=== PATIENT | female | born 1955 | race Caucasian/White ===

== ENCOUNTER → 2017-03-09 | Outpatient (CLI) | payer OTHER ==
--- NOTE | 2017-03-10 13:16 | HP ---
CHIEF COMPLAINT: The patient is here for her routine gynecologic exam and mammogram. HPI: This is a 62-year-old G0 with an LMP of 2003. The patient is without gynecologic complaints and denies any postmenopausal bleeding. She continues to decline any treatment for osteoporosis. PAST MEDICAL HISTORY: Type 2 diabetes and osteoporosis. MEDICATIONS: Metformin 1000 mg b.i.d. and Byetta 10 mg b.i.d. ALLERGIES: No known drug allergies. 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 SOCIAL HISTORY: She denies tobacco, alcohol and drug use. She works at [employer] and is single. REVIEW OF SYSTEMS: Weight has been stable. She denies respiratory, cardiac or GI problems. PHYSICAL EXAM: Blood pressure 127/75, height 5'7", weight 130 pounds, temperature 98.0, pulse 79. This is a well-developed, well-nourished white female who is alert and oriented x3, in no acute distress. HEENT: Within normal limits. NECK: Supple without mass or thyromegaly. CHEST AND LUNGS: Clear to auscultation. HEART: Regular rate and rhythm. BREASTS: Without mass or discharge. AXILLARY: Negative for adenopathy. BACK: Negative for CVA tenderness. ABDOMEN: Soft, nontender without palpable masses. PELVIC EXAM: External genitalia reveals mild to moderate atrophy without lesions. Cervix and vagina reveal mild to moderate atrophy without lesions. Ther cervix appears somewhat stenotic and nulliparous. There is no evidence of prolapse. The uterus is mid position, nongravitized and nontender. There are no palpable adnexal masses or tenderness. RECTOVAGINAL: Negative for mass or tenderness and is negative for occult blood. EXTREMITIES: Nontender. IMPRESSION: 1. 62-year-old menopausal female with normal gynecologic exam. 2. History of osteoporosis and the patient declines any medical treatment for this. PLAN: 1. Pap smear was performed. 2. Self breast examination was discussed. 3. Mammogram will be done today. 4. Osteoporosis management was discussed. We have, again, discussed how she is at a significantly increased risk for fracturing a bone. We have discussed options including medications and she is declining any medical treatment for this. We have discussed the importance of adequate amounts of calcium, vitamin D and regular exercise. She will let me know if she changes her mind about medical treatment. 5 She will return in one year. ELÍAS
--- NOTE | 2017-03-11 07:44 | MM ---
Reason for exam: screening (asymptomatic). Last mammogram was performed 1 year ago. History: Patient is postmenopausal and is nulliparous. Benign US right guided VAD of the right breast, January 08, 2011. Cancelled Right US Needle Biopsy of the right breast, December 10, 2009. Benign excisional biopsy of the left breast, 1999. Physical Findings: A clinical breast exam by your physician is recommended on an annual basis and results should be correlated with mammographic findings. MG Screening Mammo w CAD Bilateral CC and MLO view(s) were taken. Prior study comparison: February 25, 2016, bilateral MG screening mammo w CAD. February 19, 2015, bilateral MG screening mammo w CAD. February 13, 2014, bilateral MG screening mammo w CAD. The breast tissue is heterogeneously dense. This may lower the sensitivity of mammography. Previous mammotome biopsy in the right breast. There is chronic nodularity in the left breast. No significant changes when compared with prior studies. ASSESSMENT: Negative, BI-RAD 1 RECOMMENDATION: Routine screening mammogram of both breasts in 1 year.
== END | disposition home or self-care (01) ==
LOC: WWCWWP 14:24
PROVIDERS: ATTEND Obstetrics & Gynecology
DX: Z12.31 Encounter for screening mammogram for malignant neoplasm of breast (principal)

== ENCOUNTER → 2018-03-22 | Outpatient (CLI) | payer OTHER ==
[2018-03-22 14:30] VITALS: BP 136/66; PULSE 75; TEMP 96.5; BMI 23.1
--- NOTE | 2018-03-22 15:14 | P.HPOB ---
History of Present Illness H&P Date: 03/22/18 Chief Complaint: The patient is here for her routine gynecologic exam and mammogram. This is a 63-year-old G0 with an LMP of 2003. The patient is without gynecologic complaints and denies any postmenopausal bleeding. She continues to decline any treatment for osteoporosis. Review of Systems The patient has gained 13 pounds over the last year. She denies respiratory, cardiac, or G.I. problems. Past Medical History Past Medical History: No Reported History, Diabetes Mellitus (Type II diabetes) Additional Past Medical History / Comment(s): Osteoporosis, declining treatment. 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 History of Any Multi-Drug Resistant Organisms: None Reported Past Surgical History: No Surgical Hx Reported, Breast Surgery (Left breast lump removed 1999, right breast cyst removed 2010) Additional Past Surgical History / Comment(s): Surgery for urethral diverticulum 2008. Colonoscopy 2012. Past Psychological History: No Psychological Hx Reported Smoking Status: Never smoker Past Alcohol Use History: None Reported Past Drug Use History: None Reported Additional History: She is single and works at [employer]. - Past Family History Mother Family Medical History: Cancer (Colon cancer), Diabetes Mellitus Father Family Medical History: Diabetes Mellitus Sister(s) Family Medical History: Diabetes Mellitus Medications and Allergies Home Medications Medication Instructions Recorded Confirmed Type Pioglitazone [Actos] mg PO DAILY 03/22/18 History metFORMIN HCL mg PO BID 03/22/18 History Allergies Allergy/AdvReac Type Severity Reaction Status Date / Time No Known Allergies Allergy Unverified 03/22/18 14:24 Exam Vital Signs Temp Pulse BP 03/22/18 14:26 96.5 F L 75 136/66 Intake and Output 03/22/18 03/22/18 03/22/18 06:59 14:59 22:59 Other: Weight 64.864 kg Height 5'6", BMI 23.1. This is a well-developed well-nourished white female who is alert and oriented times 3 in no acute distress. HEENT: Within normal limits. NECK: Supple without mass or thyromegaly. CHEST AND LUNGS: Clear to auscultation. HEART: Regular rate and rhythm. BREASTS: Are without mass or discharge. AXILLARY EXAM: Negative for adenopathy. BACK: Negative for CVA tenderness. ABDOMEN: Soft, nontender, without palpable masses. PELVIC EXAM: Normal external genitalia with mild to moderate atrophy. Cervix and vagina appear normal with mild to moderate atrophy. There is no unusual discharge. There is no evidence of prolapse. The uterus is midposition, nongravid size and nontender. There are no palpable adnexal masses or tenderness. RECTAL EXAM: rectovaginal exam is negative for mass or tenderness and is negative for occult blood. EXTREMITIES: Nontender. IMPRESSION: 1. 63-year-old menopausal female with normal gynecologic exam. 2. History of osteoporosis. The patient is declining any medical treatment for this. She is also declining any further bone density testing. PLAN: 1. Pap smear was deferred since she had a normal one last year. 2. Self breast awareness was discussed. 3. Screening mammogram will be done today. 4. Osteoporosis management was again discussed. She will continue to try to get adequate amounts of calcium, vitamin D and regular exercise. I have again recommended medication because of her high risk for fracture. She will let me know if she changes her mind about further testing or treatment. 5. She states she will be due for a colonoscopy and is scheduled to do this in 2019. 6. She will return in one year.
--- NOTE | 2018-03-23 14:49 | MM ---
Reason for exam: screening (asymptomatic). Last mammogram was performed 1 year ago. History: Patient is postmenopausal and is nulliparous. Benign US right guided VAD of the right breast, January 08, 2011. Cancelled Right US Needle Biopsy of the right breast, December 10, 2009. Benign excisional biopsy of the left breast, 1999. Physical Findings: A clinical breast exam by your physician is recommended on an annual basis and results should be correlated with mammographic findings. MG Screening Mammo w CAD Bilateral CC and MLO view(s) were taken. Technologist: RT Joe (R)(M) Prior study comparison: March 09, 2017, bilateral MG screening mammo w CAD. February 25, 2016, bilateral MG screening mammo w CAD. The breast tissue is heterogeneously dense. This may lower the sensitivity of mammography. No significant changes when compared with prior studies. ASSESSMENT: Benign, BI-RAD 2 RECOMMENDATION: Routine screening mammogram of both breasts in 1 year.
== END | disposition home or self-care (01) ==
LOC: WWCWWP 14:02
PROVIDERS: ATTEND Obstetrics & Gynecology
DX: Z12.31 Encounter for screening mammogram for malignant neoplasm of breast (principal)
CPT/HCPCS: 77067

== ENCOUNTER → 2019-05-02 | Outpatient (CLI) | payer OTHER ==
[2019-05-02 15:33] VITALS: BP 146/77; PULSE 81; RESP 16; TEMP 98.1; BMI 25.9
--- NOTE | 2019-05-02 16:09 | P.HPOB ---
History of Present Illness H&P Date: 05/02/19 Chief Complaint: The patient is here for her routine gynecologic exam and ma mmogram. This is a 64-year-old G0 with an LMP of 2003. The patient is without gynecologic complaints. The patient continues to decline any treatment for osteoporosis. Review of Systems She has gained about 17 pounds in the last year. She denies respiratory, cardiac and G.I. problems. She denies maltreatment or problems with falling. : she denies any significant problems with urinary leakage. Past Medical History Past Medical History: No Reported History, Diabetes Mellitus Additional Past Medical History / Comment(s): Type 2 diabetes. Osteoporosis, declining treatment. 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 History of Any Multi-Drug Resistant Organisms: None Reported Past Surgical History: No Surgical Hx Reported, Breast Surgery Additional Past Surgical History / Comment(s): Surgery for urethral diverticulum 2008. Colonoscopy 2012. Past Psychological History: No Psychological Hx Reported Smoking Status: Never smoker Past Alcohol Use History: None Reported Past Drug Use History: None Reported Additional History: She is single and is not seeing anybody at this time. She is not sexually active. She works at [employer]. - Past Family History Mother Family Medical History: Cancer, Diabetes Mellitus Additional Family Medical History / Comment(s): Colon cancer. Father Family Medical History: Diabetes Mellitus Sister(s) Family Medical History: Diabetes Mellitus Medications and Allergies Home Medications Medication Instructions Recorded Confirmed Type Pioglitazone [Actos] 45 mg PO DAILY 03/22/18 05/02/19 History metFORMIN HCL 1,000 mg PO BID 03/22/18 05/02/19 History Exenatide Microspheres [Bydureon 2 mg SQ WEEKLY 05/02/19 05/02/19 History Pen] Allergies Allergy/AdvReac Type Severity Reaction Status Date / Time No Known Allergies Allergy Unverified 03/22/18 14:24 Exam Vital Signs Temp Pulse Resp BP Pulse Ox 05/02/19 15:27 98.1 F 81 16 146/77 98 Intake and Output 05/02/19 05/02/19 05/02/19 06:59 14:59 22:59 Other: Weight 73.028 kg Height 5 feet 6 inches, weight 161 pounds, BMI 26.0. This is a well-developed well-nourished white female who is alert and oriented times 3 in no acute distress. HEENT: Within normal limits. NECK: Supple without mass or thyromegaly. CHEST AND LUNGS: Clear to auscultation. HEART: Regular rate and rhythm. BREASTS: Are without mass or discharge. AXILLARY EXAM: Negative for adenopathy. BACK: Negative for CVA tenderness. ABDOMEN: Soft, nontender, without palpable masses. PELVIC EXAM: Normal external genitalia with mild to moderate atrophy. Cervix and vagina appear normal with mild to moderate atrophy. There is no unusual discharge. There is no evidence of prolapse. The uterus is mid- anterior position, nongravid size and nontender. There are no palpable adnexal masses or tenderness. RECTAL EXAM: Rectovaginal exam is negative for mass or tenderness and is negative for occult blood. EXTREMITIES: Nontender. IMPRESSION: 1. 64-year-old menopausal female with normal gynecologic exam. 2. History of osteoporosis. The patient is declining any medical treatment for this. PLAN: 1. Pap smears have been discontinued. She is 64 years of age with no history of cervical problems and we have documented adequate screening. 2. Self breast awareness was discussed with the patient. 3. Screening mammogram will be done today. 4. Osteoporosis management was discussed. I have stressed the importance of adequate calcium, vitamin D and regular exercise. Recommended amounts of calcium and vitamin D were also discussed. She continues to decline medication for osteoporosis. She understands she is at high risk for fracture of bone. We have discussed ways of avoiding falling. I have asked her to call me if she changes her mind about medication or testing. 5. She does not get flu shots in the fall. I have asked her to reconsider this decision. 6. The patient was advised to return in 1-2 years for her well woman examination.
--- NOTE | 2019-05-03 10:46 | MM ---
Reason for exam: screening (asymptomatic). Last mammogram was performed 1 year and 1 month ago. History: Patient is postmenopausal and is nulliparous. Benign US right guided VAD of the right breast, January 08, 2011. Cancelled Right US Needle Biopsy of the right breast, December 10, 2009. Benign excisional biopsy of the left breast, 1999. Physical Findings: A clinical breast exam by your physician is recommended on an annual basis and results should be correlated with mammographic findings. MG Screening Mammo w CAD Bilateral CC and MLO view(s) were taken. Prior study comparison: March 22, 2018, bilateral MG screening mammo w CAD. March 09, 2017, bilateral MG screening mammo w CAD. The breast tissue is heterogeneously dense. This may lower the sensitivity of mammography. Stable benign calcifications. Focal asymmetry central inner left breast. This finding is changed when compared with previous exams. ASSESSMENT: Incomplete: need additional imaging evaluation, BI-RAD 0 RECOMMENDATION: Special view mammogram of the left breast. If lesion persists on supplemental views, image directed ultrasound is recommended. [facility] will attempt to contact patient to return for supplemental views and ultrasound if indicated.
== END ==
LOC: WWCWWP 15:21
PROVIDERS: ATTEND Obstetrics & Gynecology
DX: Z12.31 Encounter for screening mammogram for malignant neoplasm of breast (principal)
CPT/HCPCS: 77067

== ENCOUNTER → 2019-05-15 | Outpatient (CLI) | payer OTHER ==
--- NOTE | 2019-05-16 08:12 | MM ---
Reason for exam: additional evaluation requested from abnormal screening. Last mammogram was performed less than 1 month ago. History: Patient is postmenopausal and is nulliparous. Benign US right guided VAD of the right breast, January 08, 2011. Cancelled Right US Needle Biopsy of the right breast, December 10, 2009. Benign excisional biopsy of the left breast, 1999. Physical Findings: Nurse did not find any significant physical abnormalities on exam. MG Work Up Mamm w CAD LT Spot compression CC, spot compression MLO, and ML view(s) were taken of the left breast. Prior study comparison: May 02, 2019, bilateral MG screening mammo w CAD. March 22, 2018, bilateral MG screening mammo w CAD. The breast tissue is heterogeneously dense. This may lower the sensitivity of mammography. Benign appearing calcifications in the left breast. The previously seen abnormality resolves on additional views and appears as fibroglandular tissue compatible with summation. No suspicious abnormality. These results were verbally communicated with the patient and result sheet given to the patient on 05/15/19. ASSESSMENT: Benign, BI-RAD 2 RECOMMENDATION: Return to routine screening mammogram schedule for both breasts.
== END | disposition home or self-care (01) ==
LOC: RADMAMWWP 14:50
PROVIDERS: ATTEND Obstetrics & Gynecology
DX: R92.8 Other abnormal and inconclusive findings on diagnostic imaging of breast (principal)
CPT/HCPCS: 77065

== ENCOUNTER → 2020-07-09 | Outpatient (CLI) | payer OTHER ==
[2020-07-09 15:33] VITALS: BP 130/77; PULSE 75; RESP 18; TEMP 97.8
--- NOTE | 2020-07-09 16:00 | P.HPOB ---
History of Present Illness H&P Date: 07/09/20 Chief Complaint: The patient is here for her routine gynecologic exam and ma mmogram. This is a 65-year-old G0 with an LMP of 2003. The patient is without gynecologic complaints and denies any postmenopausal bleeding. Review of Systems Weight has been stable. She denies respiratory, cardiac and G.I. problems. She denies maltreatment or problems with falling. : she denies any significant problems with urinary leakage. Past Medical History Past Medical History: No Reported History, Diabetes Mellitus Additional Past Medical History / Comment(s): Type 2 diabetes. Osteoporosis, declining treatment. 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 History of Any Multi-Drug Resistant Organisms: None Reported Past Surgical History: No Surgical Hx Reported, Breast Surgery Additional Past Surgical History / Comment(s): Surgery for urethral diverticulum 2008. Colonoscopy 2012. Past Psychological History: No Psychological Hx Reported Smoking Status: Never smoker Past Alcohol Use History: None Reported Past Drug Use History: None Reported Additional History: She is single. She is not sexually active. She works at [employer]. - Past Family History Mother Family Medical History: Cancer, Diabetes Mellitus Additional Family Medical History / Comment(s): Colon cancer. Father Family Medical History: Diabetes Mellitus Sister(s) Family Medical History: Diabetes Mellitus Medications and Allergies Home Medications Medication Instructions Recorded Confirmed Type Pioglitazone [Actos] 45 mg PO DAILY 03/22/18 07/09/20 History metFORMIN HCL 1,000 mg PO BID 03/22/18 07/09/20 History Dulaglutide [Trulicity] 0.75 mg SQ WEEKLY 07/09/20 07/09/20 History Allergies Allergy/AdvReac Type Severity Reaction Status Date / Time No Known Allergies Allergy Unverified 07/09/20 15:27 Exam Vital Signs Temp Pulse Resp BP Pulse Ox 07/09/20 15:28 97.8 F 75 18 130/77 98 Intake and Output 07/09/20 07/09/20 07/09/20 06:59 14:59 22:59 Other: Weight 72.575 kg Height 5 feet 6 inches, weight 160 pounds, BMI 25.8. This is a well-developed well-nourished white female who is alert and oriented times 3 in no acute distress. HEENT: Within normal limits. NECK: Supple without mass or thyromegaly. CHEST AND LUNGS: Clear to auscultation. HEART: Regular rate and rhythm. BREASTS: Are without mass or discharge. AXILLARY EXAM: Negative for adenopathy. BACK: Negative for CVA tenderness. ABDOMEN: Soft, nontender, without palpable masses. PELVIC EXAM: Normal external genitalia with mild to moderate atrophy. Cervix and vagina appear normal with mild to moderate atrophy. There is no unusual discharge. There is no evidence of prolapse. The uterus is midposition, nongravid size and nontender. There are no palpable adnexal masses or tenderness. RECTAL EXAM: Rectovaginal exam is negative for mass or tenderness and is negative for occult blood. EXTREMITIES: Nontender. IMPRESSION: 1. 65-year-old menopausal female with normal gynecologic exam. 2. History of osteoporosis declining medical treatment for this. PLAN: 1. Pap smears have been discontinued. 2. Self breast awareness was discussed with the patient. 3. Screening mammogram will be done today. 4. Osteoporosis management was discussed. I have stressed the importance of adequate calcium, vitamin D and regular exercise. Recommended amounts of calcium and vitamin D were also discussed. She again is declining testing or treatment for osteoporosis. She understands she is at greater risk for bone fracture. I have recommended that she take precautions to avoid falling. I have instructed her to call if she changes her mind about treatment for osteoporosis. 5. She believes she is due for a colonoscopy. She will see her PCP to help her to arrange for this. 6. She states she does not get flu shots in the fall. I have recommended that she reconsider this and that she consider the Covid vaccination when available. 7. The patient was advised to return in 1-2 years for her well woman examination.
--- NOTE | 2020-07-10 14:00 | MM ---
Reason for exam: screening (asymptomatic). Last mammogram was performed 1 year and 2 months ago. History: Patient is postmenopausal and is nulliparous. Benign US right guided VAD of the right breast, January 08, 2011. Cancelled Right US Needle Biopsy of the right breast, December 10, 2009. Benign excisional biopsy of the left breast, 1999. Physical Findings: A clinical breast exam by your physician is recommended on an annual basis and results should be correlated with mammographic findings. MG Screening Mammo w CAD Bilateral CC and MLO view(s) were taken. Prior study comparison: May 15, 2019, left breast MG work up mamm w CAD LT. May 02, 2019, bilateral MG screening mammo w CAD. Previous mammotome biopsy in the right breast. No significant changes when compared with prior studies. ASSESSMENT: Benign, BI-RAD 2 RECOMMENDATION: Routine screening mammogram of both breasts in 1 year.
== END | disposition home or self-care (01) ==
LOC: WWCWWP 15:12
PROVIDERS: ATTEND Obstetrics & Gynecology
DX: Z12.31 Encounter for screening mammogram for malignant neoplasm of breast (principal)
CPT/HCPCS: 77067

== ENCOUNTER → 2021-07-23 | Outpatient (CLI) | payer OTHER ==
[2021-07-23 10:46] VITALS: BP 114/76; PULSE 81; RESP 18; TEMP 98.1
--- NOTE | 2021-07-23 11:28 | P.HPOB ---
History of Present Illness H&P Date: 07/23/21 Chief Complaint: The patient is here for her routine gynecologic exam and ma mmogram. This is a 66-year-old G0 with an LMP of 2003. The patient is without gynecologic complaints. Review of Systems The patient's weight has been stable over the last year. She denies respiratory, cardiac, or G.I. problems. Past Medical History Past Medical History: No Reported History, Diabetes Mellitus Additional Past Medical History / Comment(s): Type 2 diabetes. Osteoporosis, declining treatment. 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 History of Any Multi-Drug Resistant Organisms: None Reported Past Surgical History: No Surgical Hx Reported, Breast Surgery Additional Past Surgical History / Comment(s): Surgery for urethral diverticulum 2008. Colonoscopy 2020. Past Psychological History: No Psychological Hx Reported Smoking Status: Never smoker Past Alcohol Use History: None Reported Past Drug Use History: None Reported Additional History: She is single and is not sexually active. - Past Family History Mother Family Medical History: Cancer, Diabetes Mellitus Additional Family Medical History / Comment(s): Colon cancer. Father Family Medical History: Diabetes Mellitus Sister(s) Family Medical History: Diabetes Mellitus Medications and Allergies Home Medications Medication Instructions Recorded Confirmed Type Pioglitazone [Actos] 45 mg PO DAILY 03/22/18 07/23/21 History metFORMIN HCL [Glucophage] 1,000 mg PO BID 03/22/18 07/23/21 History Dulaglutide [Trulicity] 0.75 mg SQ WEEKLY 07/09/20 07/23/21 History Biotin 5 mg PO DAILY 07/23/21 07/23/21 History Calcium Carbonate [Calcium] 600 mg PO DAILY 07/23/21 07/23/21 History Cholecalciferol [Vitamin D3 (25 25 mcg PO DAILY 07/23/21 07/23/21 History Mcg = 1000 Iu)] Multivitamin [Multivitamins Adult 1 each PO DAILY 07/23/21 07/23/21 History Gummies] Zinc 50 mg PO DAILY 07/23/21 07/23/21 History Allergies Allergy/AdvReac Type Severity Reaction Status Date / Time No Known Allergies Allergy Unverified 07/23/21 10:41 Exam Vital Signs Temp Pulse Resp BP Pulse Ox 07/23/21 10:41 98.1 F 81 18 114/76 98 Intake and Output 07/22/21 07/23/21 07/23/21 22:59 06:59 14:59 Other: Weight 73.482 kg Height 5 feet 6 inches, weight 162 pounds, BMI 26.1. This is a well-developed well-nourished white female who is alert and oriented times 3 in no acute distress. HEENT: Within normal limits. NECK: Supple without mass or thyromegaly. CHEST AND LUNGS: Clear to auscultation. HEART: Regular rate and rhythm. BREASTS: Are without mass or discharge. AXILLARY EXAM: Negative for adenopathy. BACK: Negative for CVA tenderness. ABDOMEN: Soft, nontender, without palpable masses. PELVIC EXAM: Normal external genitalia with mild to moderate atrophy. Cervix and vagina appear normal with mild to moderate atrophy. There is no unusual discharge. There is no evidence of prolapse. The uterus is midposition, nongravid size and nontender. There are no palpable adnexal masses or tenderness. RECTAL EXAM: Rectovaginal exam is negative for mass or tenderness and is negative for occult blood. EXTREMITIES: Nontender. IMPRESSION: 1. 66-year-old menopausal female with normal gynecologic exam. 2. History of osteoporosis in the patient continues to refuse treatment with prescription medications. PLAN: 1. Pap smears have been discontinued. 2. Self breast awareness was discussed with the patient. We have also discussed symptoms associated with inflammatory breast cancer. 3. Screening mammogram will be done today. 4. Osteoporosis management was discussed. I have stressed the importance of adequate calcium, vitamin D and regular exercise. The patient is refusing additional treatment or testing. She was instructed to call if she changes her mind about this. 5. The patient has not received Covid vaccination. We have discussed the risks of not having any Covid vaccination including severe illness or . She will consider this. She also states she does not get flu shots. 6. She was advised to return in one year for her annual well woman exam.
== END ==
LOC: WWCWWP 10:17
PROVIDERS: ATTEND Obstetrics & Gynecology
DX: Z12.31 Encounter for screening mammogram for malignant neoplasm of breast (principal); E11.9 Type 2 diabetes mellitus without complications; Z79.84 Long term (current) use of oral hypoglycemic drugs; Z87.310 Personal history of (healed) osteoporosis fracture
CPT/HCPCS: 77067

== ENCOUNTER 2022-02-11 10:39 | Emergency (ER) | payer OTHER ==
[2022-02-11] MEDS ORDERED: KETOROLAC 15 MG/ML 1 ML VIAL IM STA (10:56)
[2022-02-11] MEDS ORDERED: HYDROcodone/APAP 5-325MG 1 EACH TAB PO STA (10:56)
--- NOTE | 2022-02-11 11:02 | ED ---
Fall HPI - General Chief Complaint: Fall Stated Complaint: fall, wrist injury Time Seen by Provider: 02/11/22 10:43 Source: patient, family, RN notes reviewed Mode of arrival: ambulatory - History of Present Illness Initial Comments: This is a 67-year-old female who presents to the emergency department with a fall injury. This morning, the patient was walking out of her house, when she tripped over her cat and landed on the cement. She landed on the left side of her body, causing pain to the left shoulder, left arm, and left wrist. She has been unable to move the arm since. Denies hitting her head or sustaining any additional injuries. Denies any fevers, chills, sore throat, cough, dyspnea, chest pain, palpitations, abdominal pain, nausea, vomiting, diarrhea, back pain, or headaches. MD Complaint: fall Fall From: standing Fall Witnessed: no Place Fall Occurred: home Loss of Consciousness: none Prolonged Down Time?: no Symptoms Prior to Fall: none Location - Extremities: Left: Shoulder, Arm, Elbow, Forearm, Hand Context: tripped/slipped - Related Data Home Medications Medication Instructions Recorded Confirmed Pioglitazone [Actos] 45 mg PO DAILY 03/22/18 07/23/21 metFORMIN HCL [Glucophage] 1,000 mg PO BID 03/22/18 07/23/21 Dulaglutide [Trulicity] 0.75 mg SQ WEEKLY 07/09/20 07/23/21 Biotin 5 mg PO DAILY 07/23/21 07/23/21 Calcium Carbonate [Calcium] 600 mg PO DAILY 07/23/21 07/23/21 Cholecalciferol [Vitamin D3 (25 25 mcg PO DAILY 07/23/21 07/23/21 Mcg = 1000 Iu)] Multivitamin [Multivitamins Adult 1 each PO DAILY 07/23/21 07/23/21 Gummies] Zinc 50 mg PO DAILY 07/23/21 07/23/21 Previous Rx's Medication Instructions Recorded HYDROcodone/APAP 5-325MG [[place] 1 tab PO Q6HR PRN 3 Days #12 tab 02/11/22 5-325] Ketorolac [Toradol] 10 mg PO Q6HR #12 tab 02/11/22 Allergies Allergy/AdvReac Type Severity Reaction Status Date / Time No Known Allergies Allergy Verified 02/11/22 10:42 Review of Systems ROS Statement: Those systems with pertinent positive or pertinent negative responses have been documented in the HPI. ROS Other: All systems not noted in ROS Statement are negative. Past Medical History Past Medical History: No Reported History, Diabetes Mellitus Additional Past Medical History / Comment(s): Type 2 diabetes. Osteoporosis, declining treatment. 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 History of Any Multi-Drug Resistant Organisms: None Reported Past Surgical History: No Surgical Hx Reported, Breast Surgery Additional Past Surgical History / Comment(s): Surgery for urethral diverticulum 2008. Colonoscopy 2020. Past Psychological History: No Psychological Hx Reported Smoking Status: Never smoker Past Alcohol Use History: None Reported Past Drug Use History: None Reported - Past Family History Mother Family Medical History: Cancer, Diabetes Mellitus Additional Family Medical History / Comment(s): Colon cancer. Father Family Medical History: Diabetes Mellitus Sister(s) Family Medical History: Diabetes Mellitus General Exam Limitations: no limitations General appearance: alert, in distress Head exam: Present: atraumatic, normocephalic, normal inspection Respiratory exam: Present: normal lung sounds bilaterally. Absent: respiratory distress, wheezes, rales, rhonchi, stridor Cardiovascular Exam: Present: regular rate, normal rhythm, normal heart sounds. Absent: systolic murmur, diastolic murmur, rubs, gallop, clicks Extremities exam: Present: other (Patient's left arm is held in flexion. Prominent swelling over the left olecranon bursa. Severely limited range of motion secondary to pain.) Neurological exam: Present: alert, oriented X3, CN II-XII intact Psychiatric exam: Present: normal affect, normal mood Skin exam: Present: warm, dry, intact, normal color. Absent: rash Course Vital Signs 02/11/22 02/11/22 10:40 13:20 Temperature 96.9 F L 97.8 F Pulse Rate 83 82 Respiratory 18 22 Rate Blood Pressure 150/71 156/72 O2 Sat by Pulse 97 97 Oximetry Procedures - Orthopedic Splinting/Casting Injury #1 Side: left Upper Extremity Injury Location: elbow Upper Extremity Immobilizer: sling/shoulder immobilizer, posterior splint Medical Decision Making - Medical Decision Making This is a 67-year-old female who presents to the emergency department for left arm pain after a fall. X-rays reveal a comminuted fracture involving the proximal humeral ulna with displacement of at least 6 mm and intra-articular extension. Deformity of the radial head is also present, suspicious for add itional fractures. I spoke with orthopedics, and Dr. Whyte reviewed the patient's imaging. He advised putting her in a splint and having him see her in the office tomorrow or [place]. She was placed in a posterior elbow splint and and then placed in a sling. She was given prescription for Toradol and [place]. Instructed her to take the [place] sparingly when the pain is the most severe, and to otherwise take the Toradol and Tylenol. Signs and symptoms of compartment syndrome reviewed. Return precautions reviewed in depth, the patient is instructed to return to the emergency department with any new, worsening, or concerning symptoms. Patient verbalized understanding. This case was discussed in detail with the attending ED physician. Presentation, findings, and treatment plan discussed in detail as well. - Radiology Data Radiology results: report reviewed, image reviewed Disposition Clinical Impression: Left ulnar fracture, Left radial head fracture Disposition: HOME SELF-CARE Instructions (If sedation given, give patient instructions): Arm Fracture in Adults (ED), How to Use a Sling (ED), Splint Care (ED), Fall Prevention (ED), Proximal Humerus Fracture (ED) Additional Instructions: Return to the emergency department with any new, worsening, or concerning symptoms. Contact orthopedics as listed on your discharge forms for a follow-up appointment in the next 1-2 days. Avoid getting the splint wet. Take the [place] sparingly when you're pain is the most severe, and avoid driving or operating machinery when taking this, as it can be sedating. Do not take ibuprofen or other anti-inflammatories when taking the Toradol. You may take anti-inflammatories after you finish the Toradol. Prescriptions: HYDROcodone/APAP 5-325MG [[place] 5-325] 1 tab PO Q6HR PRN 3 Days #12 tab PRN Reason: Pain Ketorolac [Toradol] 10 mg PO Q6HR #12 tab Is patient prescribed a controlled substance at d/c from ED?: Yes When asked, does pt state using other controlled substances?: No If prescribed controlled substance>3 days was MAPS reviewed?: Prescribed <3 Days Referrals: Lázaro Castano Jr, DO [Primary Care Provider] - 1-2 days Sorin Whyte MD [STAFF PHYSICIAN] - 1-2 days
--- NOTE | 2022-02-11 11:41 | XR ---
EXAMINATION TYPE: XR wrist complete LT DATE OF EXAM: 02/11/2022 CLINICAL HISTORY: pain TECHNIQUE: Frontal, lateral and oblique images of the left wrist are obtained. COMPARISON: None. FINDINGS: There is no acute fracture/dislocation evident. The joint spaces appear within normal schmidt its. The overlying soft tissue appears unremarkable. IMPRESSION: There is no acute fracture or dislocation seen. ICD 10 NO FRACTURE, INITIAL EVALUATION
--- NOTE | 2022-02-11 11:44 | XR ---
EXAMINATION TYPE: XR forearm LT, XR elbow complete LT DATE OF EXAM: 02/11/2022 CLINICAL HISTORY: pain TECHNIQUE: Frontal, lateral and oblique images of the left elbow are obtained. 2 views of the left f orearm are submitted. COMPARISON: None. FINDINGS: There is comminuted fracture involving the proximal humeral ulna with displacement of at le ast 6 mm. There appears to be intra-articular extension. There is also deformity of the radial head a nd I suspect additional fractures. Soft tissue deformity seen. IMPRESSION: As above
--- NOTE | 2022-02-11 11:47 | XR ---
EXAMINATION TYPE: XR humerus LT DATE OF EXAM: 02/11/2022 COMPARISON: NONE HISTORY: Pain TECHNIQUE: 2 views submitted. FINDINGS: The osseous structures are intact and the joint spaces are preserved. Diffuse osteopenia. IMPRESSION: 1. No acute fracture or dislocation.
--- NOTE | 2022-02-11 11:48 | XR ---
EXAMINATION TYPE: XR shoulder complete LT DATE OF EXAM: 02/11/2022 COMPARISON: NONE HISTORY: Pain TECHNIQUE: Three views are submitted. FINDINGS: The osseous structures are intact. There is no acute fracture or dislocation. The AC joint arthropa thy and diffuse osteopenia. IMPRESSION: 1. No acute process.
[2022-02-11 13:25] VITALS: BP 156/72; PULSE 82; RESP 22; TEMP 97.8
== END 2022-02-11 13:20 | disposition home or self-care (01) ==
LOC: EC 10:39
DX: S52.122A Displaced fracture of head of left radius, initial encounter for closed fracture (principal); S52.202A Unspecified fracture of shaft of left ulna, initial encounter for closed fracture; E11.9 Type 2 diabetes mellitus without complications; W01.0XXA Fall on same level from slipping, tripping and stumbling without subsequent striking against object, initial encounter
CPT/HCPCS: 73030; 73060; 73080; 73090; 73110; 29125; 99284; 96372; J1885

== ENCOUNTER → 2022-08-11 | Outpatient (CLI) | payer OTHER ==
[2022-08-11 12:35] VITALS: BP 131/80; PULSE 90; RESP 16; TEMP 97.9
--- NOTE | 2022-08-11 13:18 | P.HPOB ---
History of Present Illness H&P Date: 08/11/22 Chief Complaint: The patient is here for her routine gynecologic exam and ma mmogram. This is a 67-year-old G0 with an LMP of 2003. The patient is without gynecologic complaints and denies any postmenopausal bleeding. She denies any unusual vaginal discharge, genital pruritus, or odor. Review of Systems The patient has lost 17 pounds over the last year. She states that now that she is living on her own, she is eating only 1 meal per day. Her mother this year. She denies respiratory, cardiac, or G.I. problems. Past Medical History Past Medical History: No Reported History, Diabetes Mellitus Additional Past Medical History / Comment(s): Type 2 diabetes. Osteoporosis, declining treatment. 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 History of Any Multi-Drug Resistant Organisms: None Reported Past Surgical History: No Surgical Hx Reported, Breast Surgery Additional Past Surgical History / Comment(s): Surgery for urethral diverticulum 2008. Colonoscopy 2020. Left arm surgery after a fall. Past Psychological History: No Psychological Hx Reported Smoking Status: Never smoker Past Alcohol Use History: None Reported Past Drug Use History: None Reported Additional History: She is single and is not sexually active. - Past Family History Mother Family Medical History: Cancer, Diabetes Mellitus Additional Family Medical History / Comment(s): Colon cancer. Father Family Medical History: Diabetes Mellitus Sister(s) Family Medical History: Diabetes Mellitus Medications and Allergies Home Medications Medication Instructions Recorded Confirmed Type Pioglitazone [Actos] 45 mg PO DAILY 03/22/18 08/11/22 History metFORMIN HCL [Glucophage] 1,000 mg PO BID 03/22/18 08/11/22 History Dulaglutide [Trulicity] 3 mg SQ WEEKLY 07/09/20 08/11/22 History Allergies Allergy/AdvReac Type Severity Reaction Status Date / Time No Known Allergies Allergy Verified 08/11/22 12:30 Exam Vital Signs Temp Pulse Resp BP Pulse Ox 08/11/22 12:32 97.9 F 90 16 131/80 97 Intake and Output 08/10/22 08/11/22 08/11/22 22:59 06:59 14:59 Other: Weight 65.771 kg Height 5 feet 6 inches, weight 145 pounds, BMI 23.4. This is a well-developed well-nourished white female who is alert and oriented times 3 in no acute distress. HEENT: Within normal limits. NECK: Supple without mass or thyromegaly. CHEST AND LUNGS: Clear to auscultation. HEART: Regular rate and rhythm. BREASTS: Are without mass or discharge. AXILLARY EXAM: Negative for adenopathy. BACK: Negative for CVA tenderness. ABDOMEN: Soft, nontender, without palpable masses. PELVIC EXAM: Normal external genitalia with mild to moderate atrophy. Cervix and vagina appear normal with mild to moderate atrophy. There is a small amount of dark mustard-like discharge in the back of the vagina. There is no odor and no lesions noted within the vagina. There is no evidence of prolapse. The uterus is midposition, nongravid size and nontender. There are no palpable adnexal masses or tenderness. RECTAL EXAM: Rectovaginal exam is negative for mass or tenderness and is negative for occult blood. There is no evidence of any rectovaginal fistula. EXTREMITIES: Nontender. IMPRESSION: 1. 67-year-old menopausal female with small amount of darker mustard-like discharge in the vagina. This is asymptomatic to the patient and no lesions are noted within the vagina or on the cervix. 2. History of osteoporosis and the patient continues to refuse medication for osteoporosis. PLAN: 1. Pap smears have been discontinued. 2. Self breast awareness was discussed with the patient. We have also discussed symptoms associated with inflammatory breast cancer. 3. Screening mammogram will be done today. 4. Affirm vaginitis panel was obtained from the vagina. 5. Osteoporosis management was discussed. I have stressed the importance of adequate calcium, vitamin D and regular exercise. Recommended amounts of calcium and vitamin D were also discussed. We have again discussed how she is at greater risk for bone fracture and home medications can possibly decrease the risk for fracture. She again is refusing testing and treatment at this time. She will let me know if she changes her mind about this. 6. She has not had a Covid vaccination. She understands they are recommended and are available. She still is declining this. 7. She was advised to return in one year for her annual well woman exam and as needed.
--- NOTE | 2022-08-12 08:37 | MM ---
Reason for Exam: Screening (asymptomatic). Last mammogram was performed 1 year(s) and 1 month(s) ago. Patient History: Menarche at age 11. Patient has no children. Postmenopausal. 1999, Benign Excisional Biopsy on the left side. 01/08/2011, Benign Core Biopsy on the right side. 12/10/2009, Cancelled Right US Needle Biopsy on the right side. Risk Values: Aura 5 year model risk: 2.8%. NCI Lifetime model risk: 9.1%. Prior Study Comparison: 05/15/2019 Left Diagnostic Mammogram, [facility]. 07/09/2020 Bilateral Screening Mammogram, [facility]. 07/23/2021 Bilateral Screening Mammogram, [facility]. Tissue Density: The breast tissue is heterogeneously dense. This may lower the sensitivity of mammography. Findings: Analyzed By CAD. Pattern appears symmetrical and stable. Core marker is within the right breast. No suspicious groups of microcalcifications, spiculated or lobular masses, architectural distortion or other secondary signs of malignancy are mammographically apparent. Overall Assessment: Benign, BI-RAD 2 Management: Screening Mammogram of both breasts in 1 year. A negative mammogram report should not preclude additional follow up of suspicious palpable abnormalities. Patient should continue monthly self breast exam. A clinical breast exam by your physician is recommended on an annual basis and results should be correlated with mammographic findings. Electronically signed and approved by: Jero Flanagan D.O. Radiologis
== END ==
LOC: WWCWWP 12:16
PROVIDERS: ATTEND Obstetrics & Gynecology
DX: Z12.31 Encounter for screening mammogram for malignant neoplasm of breast (principal); E11.9 Type 2 diabetes mellitus without complications; M81.0 Age-related osteoporosis without current pathological fracture; Z79.84 Long term (current) use of oral hypoglycemic drugs
CPT/HCPCS: 77067

== ENCOUNTER → 2023-08-24 | Outpatient (CLI) | payer OTHER ==
[2023-08-24 09:58] VITALS: BP 128/77; PULSE 94; RESP 17; TEMP 97.9
--- NOTE | 2023-08-24 10:17 | P.HPOB ---
History of Present Illness H&P Date: 08/24/23 Chief Complaint: The patient is here for her routine gynecologic exam and ma mmogram. This is a 68-year-old G0 with an LMP of 2003. The patient is without gynecologic complaints and denies any postmenopausal bleeding. Review of Systems The patient has gained 10 pounds over the last year. She denies respiratory, cardiac, or G.I. problems. Past Medical History Past Medical History: No Reported History, Diabetes Mellitus Additional Past Medical History / Comment(s): Type 2 diabetes. Osteoporosis, declining treatment. 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 History of Any Multi-Drug Resistant Organisms: None Reported Past Surgical History: No Surgical Hx Reported, Breast Surgery Additional Past Surgical History / Comment(s): Surgery for urethral diverticulum 2008. Colonoscopy 2020(next after 5yr). Left arm surgery after a fall. Past Psychological History: No Psychological Hx Reported Smoking Status: Never smoker Past Alcohol Use History: None Reported Past Drug Use History: None Reported Additional History: She is single and is not sexually active. - Past Family History Mother Family Medical History: Cancer, Diabetes Mellitus Additional Family Medical History / Comment(s): Colon cancer. Father Family Medical History: Diabetes Mellitus Sister(s) Family Medical History: Diabetes Mellitus Medications and Allergies Home Medications Medication Instructions Recorded Confirmed Type Pioglitazone [Actos] 45 mg PO DAILY 03/22/18 08/24/23 History metFORMIN HCL [Glucophage] 1,000 mg PO BID 03/22/18 08/24/23 History Dulaglutide [Trulicity] 3 mg SQ WEEKLY 07/09/20 08/24/23 History Allergies Allergy/AdvReac Type Severity Reaction Status Date / Time No Known Allergies Allergy Verified 08/24/23 09:47 Exam Vital Signs Temp Pulse Resp BP Pulse Ox 08/24/23 09:48 97.9 F 94 17 128/77 98 Intake and Output 08/23/23 08/24/23 08/24/23 22:59 06:59 14:59 Other: Weight 70.307 kg Height 5 feet 6 inches, weight 155 pounds, BMI 25.0. This is a well-developed well-nourished white female who is alert and oriented times 3 in no acute distress. HEENT: Within normal limits. NECK: Supple without mass or thyromegaly. CHEST AND LUNGS: Clear to auscultation. HEART: Regular rate and rhythm. BREASTS: Are without mass or discharge. AXILLARY EXAM: Negative for adenopathy. BACK: Negative for CVA tenderness. ABDOMEN: Soft, nontender, without palpable masses. PELVIC EXAM: Normal external genitalia with mild to moderate atrophy. Cervix and vagina appear normal with mild to moderate atrophy. There is no unusual discharge. There is no evidence of prolapse. The uterus is midposition, nongravid size and nontender. There are no palpable adnexal masses or tenderness. RECTAL EXAM: Rectovaginal exam is negative for mass or tenderness and is negative for occult blood. EXTREMITIES: Nontender. IMPRESSION: 1. 68-year-old menopausal female with normal gynecologic exam 2. History of osteoporosis refusing treatment with prescription medication as well as bone density testing. PLAN: 1. Pap smears have been discontinued. 2. Self breast awareness was discussed with the patient. We have also discussed symptoms associated with inflammatory breast cancer. 3. Screening mammogram will be done today. 4. Osteoporosis management was discussed. I have stressed the importance of adequate calcium, vitamin D and regular exercise. Recommended amounts of calcium and vitamin D were also discussed. She again is refusing all testing and prescription treatments. She understands she is at an increased risk for bone fracture. I stressed importance of trying to avoid falling. She was instructed to call if she changes her mind about bone density testing or treatment. 5. She was advised to return in one year for her annual well woman exam.
--- NOTE | 2023-08-25 10:07 | MM ---
Reason for Exam: Screening (asymptomatic). Last screening mammogram was performed 12 month(s) ago. Patient History: Menarche at age 11. Patient has no children. Postmenopausal. 1999, Benign Excisional Biopsy on the left side. 01/08/2011, Benign Core Biopsy on the right side. 12/10/2009, Cancelled Right US Needle Biopsy on the right side. Risk Values: Aura 5 year model risk: 2.9%. NCI Lifetime model risk: 8.7%. Prior Study Comparison: 07/09/2020 Bilateral Screening Mammogram, [facility]. 07/23/2021 Bilateral Screening Mammogram, [facility]. 08/11/2022 Bilateral MG screening mammo w CAD, [facility]. Tissue Density: The breast tissue is heterogeneously dense. This may lower the sensitivity of mammography. Findings: Analyzed By CAD. Right breast biopsy clip. There is no suspicious group of microcalcifications or new suspicious mass. Overall Assessment: Negative, BI-RAD 1 Management: Screening Mammogram of both breasts in [address] [facility] will attempt to contact patient to return for supplemental views and ultrasound if indicated. Patient should continue monthly self-breast exams. A clinical breast exam by your physician is recommended on an annual basis. This exam should not preclude additional follow-up of suspicious palpable abnormalities. Note on Aura scores and lifetime risk: 1. A Aura score greater than 3% is considered moderate risk. If this is the case, consider specialist referral to assess eligibility for a risk reducing agent. 2. If overall lifetime risk for the development of breast cancer is 20% or higher, the patient may qualify for future screening with alternating mammogram and breast MRI. Electronically signed and approved by: Raul Nickerson DO
== END ==
LOC: WWCWWP 09:31
PROVIDERS: ATTEND Obstetrics & Gynecology
DX: Z12.31 Encounter for screening mammogram for malignant neoplasm of breast (principal); E11.9 Type 2 diabetes mellitus without complications; M81.0 Age-related osteoporosis without current pathological fracture; Z78.0 Asymptomatic menopausal state; Z79.84 Long term (current) use of oral hypoglycemic drugs; Z79.85 Long-term (current) use of injectable non-insulin antidiabetic drugs
CPT/HCPCS: 77067